=== PATIENT | female | born 1930 | race African-American/Black ===

== ENCOUNTER 2016-07-26 18:17 | Emergency (ER) | payer OTHER ==
[2016-07-26 18:15] LABS: BASOPHILS 0.7 %; BASOPHILS ABSOLUTE 0.04 10/3/uL (0.0-0.16); EOSINOPHILS 3.4 %; ER CBC TAT 0 Hrs 05 Mins; IMMATURE GRANULOCYTES 0.3 %; IMMATURE GRANULOCYTES ABSOLUTE 0.02 10/3/uL (0.0-0.11); LYMPHOCYTES 25.7 %; MEAN CORPUS HGB CONC 32.7 g/dL (32.0-36.0); MEAN CORPUSCULAR HEMOGLOB 28.6 pg (26.0-34.0); MEAN CORPUSCULAR VOLUME 87.7 fL (80-100); MEAN PLATELET VOLUME 10.5 fL (9.2-13.0); MONOCYTES 18.2 %; MONOCYTES ABSOLUTE 1.06 10/3/uL (0.21-1.20); NEUTROPHILS 51.7 %; NEUTROPHILS ABSOLUTE 3.01 10/3/uL (2.02-8.40); PLATELET COUNT 202 10/3/uL (150-400); RBC DISTRIBUTION WIDTH 13.5 % (12.0-16.0); WHITE BLOOD CELLS 5.8 10/3/uL (4.5-10.5)
[2016-07-26 18:16] LABS: HEMATOCRIT 39.8 % (36.0-48.0); MANUAL DIFF NO %; RED CELL COUNT 4.54 10/6/uL (4.0-5.6)
[~2016-07-26 18:17] MED LIST: *DENIES; LEVAQUIN750 MG PO; MOBIC15 MG PO
[2016-07-26 18:29] LABS: A/G RATIO 0.5 (0.7-1.9); ALBUMIN 3.2 G/DL (3.5-5.0); ALKALINE PHOSPHATASE 59 U/L (45-117); BUN (BLOOD UREA NITROGEN) 14 MG/DL (6-23); CALCIUM, SERUM 8.7 MG/DL (8.5-10.4); CHLORIDE, SERUM 96 MMOL/L (96-112); CO2 (CARBON DIOXIDE) 28 MMOL/L (24-34); CREATININE 1.16 MG/DL (0.55-1.02); GFR AFRICAN AMERICAN 50 ML/MIN (>=60); GFR NON AFRICAN AMERICAN 43 ML/MIN (>=60); GLOBULIN 6.5 G/DL (2.5-4.1); GLUCOSE, SERUM 92 MG/DL (60-99); POTASSIUM, SERUM 3.7 MMOL/L (3.5-5.3); SGOT(AST) 18 U/L (5-40); SGPT(ALT) 9 U/L (5-65); SODIUM, SERUM 133 MMOL/L (135-148); TOTAL BILIRUBIN 0.7 MG/DL (0-1.2); TOTAL PROTEIN 9.7 G/DL (6.0-8.5)
== END 2016-07-26 20:10 | disposition home or self-care (01) ==
LOC: ER 18:17
PROVIDERS: Emergency Medicine
DX: L03.116 Cellulitis of left lower limb (principal); Z87.01 Personal history of pneumonia (recurrent); I10 Essential (primary) hypertension
CPT/HCPCS: 80053; 83605; 85025; 87040; 87070; 87205; 96374; 99283

== ENCOUNTER 2016-08-02 22:08 | Emergency (ER) | payer OTHER ==
[2016-08-02 21:34] LABS: BUN (BLOOD UREA NITROGEN) 17 MG/DL (6-23); CHLORIDE, SERUM 104 MMOL/L (96-112); CO2 (CARBON DIOXIDE) 23 MMOL/L (24-34); CREATININE 1.21 MG/DL (0.55-1.02); GFR AFRICAN AMERICAN 48 ML/MIN (>=60); GFR NON AFRICAN AMERICAN 41 ML/MIN (>=60); GLUCOSE, SERUM 101 MG/DL (60-99); POTASSIUM, SERUM 3.4 MMOL/L (3.5-5.3); SODIUM, SERUM 138 MMOL/L (135-148)
[2016-08-02 21:38] LABS: BASOPHILS 0.5 %; BASOPHILS ABSOLUTE 0.03 10/3/uL (0.0-0.16); EOSINOPHILS 4.3 %; EOSINOPHILS ABSOLUTE 0.26 10/3/uL (0.0-0.53); ER CBC TAT 0 Hrs 23 Mins; HEMATOCRIT 38.8 % (36.0-48.0); HEMOGLOBIN 12.4 g/dL (12.0-16.0); IMMATURE GRANULOCYTES 0.2 %; IMMATURE GRANULOCYTES ABSOLUTE 0.01 10/3/uL (0.0-0.11); LYMPHOCYTES 26.7 %; LYMPHOCYTES ABSOLUTE 1.61 10/3/uL (0.67-4.30); MEAN CORPUSCULAR HEMOGLOB 27.4 pg (26.0-34.0); MEAN CORPUSCULAR VOLUME 85.8 fL (80-100); MEAN PLATELET VOLUME 9.9 fL (9.2-13.0); MONOCYTES 22.1 %; MONOCYTES ABSOLUTE 1.33 10/3/uL (0.21-1.20); NEUTROPHILS 46.2 %; NEUTROPHILS ABSOLUTE 2.78 10/3/uL (2.02-8.40); RBC DISTRIBUTION WIDTH 13.7 % (12.0-16.0); RED CELL COUNT 4.52 10/6/uL (4.0-5.6)
[2016-08-02 21:39] LABS: MANUAL DIFF NO %; PLATELET COUNT 325 10/3/uL (150-400)
[2016-08-02 22:08] LABS: EOSINOPHILS 8 %; EOSINOPHILS ABSOLUTE (CALC) 0.48 10/3/uL (0.0-0.53); ER DIFF TAT 0 Hrs 53 Mins; LYMPHOCYTES 24 %; LYMPHOCYTES ABSOLUTE (CALC) 1.44 10/3/uL (0.67-4.30); MONOCYTES 21 %; MONOCYTES ABSOLUTE (CALC) 1.26 10/3/uL (0.21-1.20); NEUTROPHILS ABSOLUTE (CALC) 2.82 10/3/uL (2.02-8.40); PLATELET ESTIMATE ADQ (ADEQUATE); RBC MORPHOLOGY NORM (NORMAL); SEGMENTED NEUTROPHIL (0) 47 %; TOTAL NUCLEATED CELLS 100
== END 2016-08-02 22:24 | disposition home or self-care (01) ==
LOC: ER 22:08
PROVIDERS: Nurse Practitioner Acute Care
DX: M79.672 Pain in left foot (principal); Z87.01 Personal history of pneumonia (recurrent); I10 Essential (primary) hypertension; D64.9 Anemia, unspecified
CPT/HCPCS: 73630-LT; 80048; 84550; 85025; 99284; A9270-GY

== ENCOUNTER 2016-11-11 14:30 | Emergency (ER) | payer OTHER | END 2016-11-11 15:10 | disposition home or self-care (01) | LOC: ER 14:30 | DX: M21.612 Bunion of left foot (principal); M21.611 Bunion of right foot; I10 Essential (primary) hypertension; D64.9 Anemia, unspecified; Z87.01 Personal history of pneumonia (recurrent) | CPT/HCPCS: 73630-LT; 99283 ==